=== PATIENT | female | born 1980 | race Caucasian/White ===

== ENCOUNTER 2018-08-28 20:18 | Observation (INO) | payer OTHER ==
[~2018-08-28] VITALS: Ht 170.2 cm; Wt 67.7 kg
[~2018-08-28 20:18] MED LIST: BACTRIM 400-801 TAB PO; DEMEROL50 MG PO; EZFE 200200 MG PO; IBUPROFEN600 MG PO; MULTI-DAY VITAM1 TAB PO; NEXIUM40 MG PO; PROTONIX40 MG PO; ZOFRAN4 MG PO
[2018-08-28 21:15] LABS: BASOPHILS 0.7 % (0-2); EOSINOPHILS 3.5 % (0-7); HEMATOCRIT 39.2 % (36.0-48.0); HEMOGLOBIN 13.2 g/dL (12-16); IMMATURE GRANULOCYTES 0.3 % (0-5); LYMPHOCYTES 34.6 % (15-50); MCH 29.9 pg (26.0-34.0); MCHC 33.7 g/dL (31.0-37.0); MCV 88.7 fL (80.0-100.0); MEAN PLATELET VOLUME 10.4 fL (7.4-10.4); MONOCYTES 5.5 % (2-11); NEUTROPHILS 55.4 % (40-80); PLATELET COUNT 323 10x3/uL (130-400); RBC 4.42 10x6/uL (4.00-5.40); RDW 13.3 % (11.5-14.5); WBC 13.9 10x3/uL (4.8-10.8)
[2018-08-28 21:27] LABS: APTT 27.9 SECONDS (22.8-39.4); INR 0.97 (0.85-1.17); PROTIME 12.4 SECONDS (11.6-15.0)
[2018-08-28 21:30] LABS: ALBUMIN 3.6 g/dL (3.4-5.0); ALKALINE PHOSPHATASE 98 U/L (46-116); ALT (SGPT) 20 U/L (10-68); BILIRUBIN - TOTAL 0.26 mg/dL (0.2-1.3); CALC OSMOLALITY 273 mosm/kg (275-300); CALCIUM 8.6 mg/dL (8.5-10.1); CHLORIDE - SERUM 103 mmol/L (98-107); CREATININE - SERUM 0.9 mg/dL (0.6-1.3); GLUCOSE 105 mg/dL (74-106); POTASSIUM - SERUM 3.6 mmol/L (3.5-5.1); PROTEIN - SERUM 7.5 g/dL (6.4-8.2); SODIUM 138 mmol/L (136-145); UREA NITROGEN 7 mg/dL (7-18); eGFR NON AFRICAN AMERICAN 74 mL/min (90-120)
[2018-08-28 21:41] LABS: CKMB 0.8 U/L (0.0-3.6); CREATINE KINASE 89 UL (21-215); THYROID STIMULATING HORMONE 2.33 uIU/mL (0.36-3.74); TROPONIN-I < 0.017 ng/mL (0.000-0.060)
[2018-08-28 21:46] VITALS: BP 114/69
[2018-08-28 21:58] LABS: UDS - AMPHET NEGATIVE QUAL (NEGATIVE); UDS - BARB NEGATIVE QUAL (NEGATIVE); UDS - BENZO NEGATIVE QUAL (NEGATIVE); UDS - COCAINE NEGATIVE QUAL (NEGATIVE); UDS - OPIATE NEGATIVE QUAL (NEGATIVE); UDS - PCP NEGATIVE QUAL (NEGATIVE); UDS - THC NEGATIVE QUAL (NEGATIVE)
[2018-08-28 21:59] LABS: APPEARANCE CLEAR (CLEAR); BILIRUBIN NEGATIVE (NEGATIVE); COLOR YELLOW (YELLOW); GLUCOSE NEGATIVE (NEGATIVE); KETONE NEGATIVE (NEGATIVE); NITRITE NEGATIVE (NEGATIVE); PROTEIN NEGATIVE (NEGATIVE); SPECIFIC GRAVITY 1.005 (1.005-1.020); UROBILINOGEN NORMAL (NORMAL)
[2018-08-28 22:15] VITALS: BP 109/64
[2018-08-28 23:31] VITALS: BP 109/62
--- NOTE | 2018-08-28 23:31 | NUR ---
CONSENT SIGNED FOR LP
--- NOTE | 2018-08-28 23:39 | NUR ---
PT REFUSING LP AT THIS TIME
[2018-08-29] VITALS (12 sets, daily range): BP systolic 95–126; BP diastolic 47–68; Ht 170.2 cm; Wt 67.7 kg
--- NOTE | 2018-08-29 00:34 | NUR ---
PT TOLERATED PROCEDURE WELL. DRESSING APPLIED TO AREA BY DR QUIROZ AT THIS TIME. NO SAMPLES COLLECTED. PT ADVISED TO LAY FLAT AT THIS TIME. PT ALERT AND ORIENTED, RESP IS EVEN AND NON LABORED. NO N/V/D. NO FEVER NO CHILLS. PT REPORTS HEADACHE WITH LEFT EYE VISION CHANGES ONLY
--- NOTE | 2018-08-29 00:59 | NUR ---
PT LYING IN BED FLAT AT THIS TIME. NO COMPLAINTS. WILL MONITOR
--- NOTE | 2018-08-29 02:02 | NUR ---
PT ALERT AND ORIENTED. CONTINUED TO LAY SUPINE AT THIS TIME. RESP IS EVEN AND NON LABORED. PT REPORTS CONTINUED LEFT SIDE HEADACHE AND BLURRED VISION TO LEFT EYE. PT REPORTS SLIGHT DIZZINESS AT THIS TIME. PERRLA. PT DENIES ANY NUMBNESS NO TINGLING. NO CHANGES TO EXT. NO CHANGES TO SENSATION. GCS 15 AT THIS TIME. IV SITE WNL. IV INFUSING WELL. MD ADVISED ON DIZZINESS. NO NEW ORDERS AT THIS TIME
--- NOTE | 2018-08-29 02:30 | NUR ---
IV ROCEPHIN COMPLETED AT THIS TIME
--- NOTE | 2018-08-29 04:30 | NUR ---
VANCOMYCIN COMPLETED AT THIS TIME
--- NOTE | 2018-08-29 04:47 | NUR ---
IV INFUSING WELL. IV SITE WNL. PT HAS NO COMPLAINTS AT THIS TIME. WILL MONITOR
--- NOTE | 2018-08-29 06:44 | NUR ---
IV FLUIDS INFUSING WELL AT THIS TIME. IV SITE WNL. PT ALERT AND ORIENTED. RESP IS EVEN AND NON LABORED. NO N/V/D. PT REPORTS IMPROVED FOWLER AT THIS TIME. NO DIZZINESS
[2018-08-29 10:02] LABS: ERYTHROCYTE SEDIMENTATION RATE 9 mm/hr (0-20)
--- NOTE | 2018-08-29 10:38 | NUR ---
PATIENT TO X-RAY FOR LUMBAR PUNCTURE.
[2018-08-29 11:50] LABS: GLUCOSE - CSF 57 MG/DL (40-75); PROTEIN - CSF 35 MG/DL (12-60)
[2018-08-29 11:52] LABS: APPEARANCE - CSF COLORLESS; RBC - CSF 0 cmm (0-0)
--- NOTE | 2018-08-29 12:38 | MORECARE ---
CASE MANAGEMENT DISCHARGE SUMMARY PATIENT: RENE CYR UNIT: [id number] ADM DATE: 08/29/18 AGE: 37 : 78 SEX: F ROOM/BED: D.2101 AUTHOR: KALEY CAAL PHYSICIAN: REFERRING PHYSICIAN: ELIDIA TRIANA MD DATE OF SERVICE: 08/29/18 Discharge Plan Patient Name: RENE CYR [facility] [facility] 1980 Planned Disposition: Anticipated Discharge Date: Discharge Date: Expected LOS: Initial Reviewer: [email or web address] Initial Review Date: 08/29/2018 Generated: 08/29/18 1:38 pm DCPIA - Discharge Planning Initial Assessment Updated by [email or web address]: Sofie Eckert on 08/29/18 12:32 pm * Is the patient Alert and Oriented? Yes * How many steps to enter\exit or inside your home? 3 with samano * PCP Dr. Chaidez * Pharmacy [facility] * Preadmission Environment Home with Family * ADLs Independent * Equipment None * Other Equipment NA * List name and contact numbers for known caregivers / representatives who currently or will assist patient after discharge: Josemanuel Cyr [phone] * Verbal permission to speak to the caregivers and representatives has been obtained from the patient. Yes * Community resources currently utilized None * Please name any agencies selected above. NA * Additional services required to return to the preadmission environment? No * Can the patient safely return to the preadmission environment? Yes * Has this patient been hospitalized within the prior 30 days at any hospital? No Patient Name: RENE CYR Page [id number] at 1238 All edits/amendments must be made on the electronic document DICTATION DATE: 08/29/18 1238 SECURITY TRAINER: EPHRAIM 08/29/18 1238 RPT#: [id number] DC DATE: STATUS: ADM IN [facility] [address] [place] [address] END OF REPORT
--- NOTE | 2018-08-29 13:43 | MORECARE ---
CASE MANAGEMENT DISCHARGE SUMMARY PATIENT: RENE CYR UNIT: [id number] ADM DATE: 08/29/18 AGE: 37 : 78 SEX: F ROOM/BED: D.2101 AUTHOR: AFUA,DOC PHYSICIAN: REFERRING PHYSICIAN: ELIDIA TRIANA MD DATE OF SERVICE: 08/29/18 Discharge Plan Patient Name: RENE CYR Facility: [facility]:[place] : 1980 Planned Disposition: Anticipated Discharge Date: Discharge Date: Expected LOS: Initial Reviewer: [email or web address] Initial Review Date: 08/29/2018 Generated: 08/29/18 2:43 pm DCP- Discharge Planning Updated by [email or web address]: Sofie Eckert on 08/29/18 12:[address] CM met with patient in ER regarding DC needs/planning. Patient states she is independent with care, uses no DME, nor does she feel she will require additional assistance upon discharge. PCP: Dr. Chaidez. Pharmacy: [facility]. Emergency Contact: Josemanuel Cyr #[phone]. Permission given to speak with Mr. Cyr. Denies being hospitalized within past 30 days. CM will follow and assist with dc needs/plans on PRN basis. Sofie Eckert RN, CM DCPIA - Discharge Planning Initial Assessment Updated by [email or web address]: Sofie Eckert on 08/29/18 12:32 pm * Is the patient Alert and Oriented? Yes * How many steps to enter\exit or inside your home? 3 with samano * PCP Dr. Chaidez * [facility] * Preadmission Environment Home with Family * ADLs Independent * Equipment None * Other Equipment NA * List name and contact numbers for known caregivers / representatives who currently or will assist patient after discharge: Josemanuel Cyr [phone] * Verbal permission to speak to the caregivers and representatives has been obtained from the patient. Yes * Community resources currently utilized None * Please name any agencies selected above. NA * Additional services required to return to the preadmission environment? No * Can the patient safely return to the preadmission environment? Yes * Has this patient been hospitalized within the prior 30 days at any hospital? No Last DP export: 08/29/18 11:38 a Patient Name: RENE CYR Page [id number] at 1343 All edits/amendments must be made on the electronic document DICTATION DATE: 08/29/18 1343 DOOR LINER HELPER: EPHRAIM 08/29/18 1343 RPT#: [id number] DC DATE: STATUS: ADM IN [facility] [address] [place] [address] END OF REPORT
== END 2018-08-29 16:17 | disposition home or self-care (01) ==
LOC: D.ER 20:18 → D.EDHOLD 08-29 01:09 → D.M2 08-29 01:09 → OBSVTIME 08-29 01:09 → D.EDHOLD 08-29 12:36 → D.M2 08-29 12:36 → D.EDHOLD 08-29 16:17
PROVIDERS: Family Medicine; ADMIT Internal Medicine Nephrology
DX: R51 Headache (principal); H53.8 Other visual disturbances; F17.213 Nicotine dependence, cigarettes, with withdrawal

== ENCOUNTER 2018-09-04 11:08 | Emergency (ER) | payer OTHER ==
[~2018-09-04] VITALS: Ht 170.2 cm; Wt 67.7 kg
[2018-09-04 11:12] VITALS: Ht 170.2 cm; Wt 67.7 kg
[2018-09-04 12:45] VITALS: BP 127/80
== END 2018-09-04 12:45 | disposition home or self-care (01) ==
LOC: D.ER 11:08
DX: R51 Headache (principal)

== ENCOUNTER → 2019-07-16 08:37 | Outpatient (CLI) | payer OTHER ==
[2018-09-04 11:12] VITALS: BMI 23.4
== END | disposition home or self-care (01) ==
LOC: D.MRI 08:37
PROVIDERS: ATTEND Orthopaedic Surgery
DX: M54.5 Low back pain (principal)

== ENCOUNTER → 2020-06-03 08:57 | Outpatient (CLI) | payer OTHER ==
[2018-09-04 11:12] VITALS: BMI 23.4
== END | disposition home or self-care (01) ==
LOC: D.US 08:57
PROVIDERS: ATTEND Student in an Organized Health Care Education/Training Program
DX: N83.209 Unspecified ovarian cyst, unspecified side (principal)